=== PATIENT | female | born 1950 | race Caucasian/White ===

== ENCOUNTER → 2017-01-09 | Outpatient (CLI) | payer OTHER ==
[~2017-01-09] MED LIST: ALBU1AER9 INH; ASCA500 PO; ASMTWH INH; CLTP PO; DVN80125 PO; HYDR-4079 PO; MULT-506 PO; OMEG10007 PO; OXYSR10 PO; red yeast rice PO
== END | disposition home or self-care (01) ==
LOC: C.PATHSPEC 17:14
PROVIDERS: ATTEND Orthopaedic Surgery
DX: M19.041 Primary osteoarthritis, right hand (principal); R22.31 Localized swelling, mass and lump, right upper limb; M65.331 Trigger finger, right middle finger